=== PATIENT | male | born 1970 ===

== ENCOUNTER 2016-04-07 19:25 | Emergency (ER) | payer OTHER ==
[2016-04-07 20:25] VITALS: BP 114/71
--- NOTE | 2016-04-07 20:49 | UC ---
UC General HPI - HPI Summary HPI Summary: 45 yo male with a 3-4 day hx of fatigue and malaise He is an outdoorsman and a week ago removed a tick states it was not engorged and was attached for a max of 6 hours no celestin no f/c - History of Current Complaint Chief Complaint: UCGeneralIllness Stated Complaint: TICK BITE,FATIGUE,NAUSEA Time Seen by Provider: 04/07/16 20:28 Hx Obtained From: Patient Onset/Duration: Gradual Onset, Lasting Days Onset Severity: Mild Current Severity: Mild Pain Intensity: 0 Associated Signs & Symptoms: Positive: Other - fatigue/mailaise - Allergy/Home Medications Allergies/Adverse Reactions: Allergies Allergy/AdvReac Type Severity Reaction Status Date / Time Penicillins Allergy ITCHY HIVES Verified 04/07/16 20:26 SEASONAL HAYFEVER Allergy ITCHY Uncoded 04/07/16 20:26 EYES, SCRATCHY THROAT PMH/Surg Hx/FS Hx/Imm Hx Previously Healthy: Yes Endocrine History Of: Reports: Thyroid Disease - HYPOTHYROIDISM Psychological History Of: Reports: Anxiety - CONTROL WITH MED, Depression - CONTROL WITH MEDS - Surgical History Surgical History: Yes Surgery Procedure, Year, and Place: ENDOSCOPY, [facility]. COLONOSCOPY, [facility]. 08/2014 RIGHT WRIST CARPAL TUNNEL RELEASE, [facility] - Family History Known Family History: Positive: Hypertension - Social History Alcohol Use: None Substance Use Type: None Substance Use Comment - Amount & Last Used: OCCASIONAL LAST TIME WEEK OF July Smoking Status (MU): Former Smoker Type: Cigarettes Amount Used/How Often: 1 PPD Length of Time of Smoking/Using Tobacco: 15 YEARS OFF AND ON Have You Smoked in the Last Year: No When Did the Patient Quit Smoking/Using Tobacco: 2013 Review of Systems Constitutional: Fatigue Skin: Negative Eyes: Negative ENT: Negative Respiratory: Negative Cardiovascular: Negative Gastrointestinal: Negative Genitourinary: Negative Motor: Negative Neurovascular: Negative Musculoskeletal: Myalgia Neurological: Negative Psychological: Negative All Other Systems Reviewed And Are Negative: Yes Physical Exam Triage Information Reviewed: Yes Appearance: Well-Appearing, No Pain Distress, Well-Nourished Vital Signs: Initial Vital Signs Temp 98.4 F 04/07/16 20:16 Pulse 70 04/07/16 20:16 Resp 18 04/07/16 20:16 BP 114/71 04/07/16 20:16 Pulse Ox 99 04/07/16 20:16 Vital Signs Reviewed: Yes Eyes: Positive: Conjunctiva Clear ENT: Positive: Normal ENT inspection, Hearing grossly normal, Pharynx normal, TMs normal. Negative: Nasal congestion, Nasal drainage, Trismus, Muffled/ hoarse voice Neck: Positive: Nontender, No Lymphadenopathy Respiratory: Positive: Lungs clear, Normal breath sounds, No respiratory distress, No accessory muscle use Cardiovascular: Positive: RRR, No Murmur, Pulses Normal Musculoskeletal: Positive: Strength Intact, ROM Intact, No Edema Neurological: Positive: Alert Psychological Exam: Normal Skin Exam: Normal Course/Dx - Differential Dx - Multi-Symptom Provider Diagnoses: Fatigue/mailase of uncertain cause Discharge - Discharge Plan Condition: Stable Disposition: HOME Patient Education Materials: Fatigue (ED) Referrals: Franck Ahuja MD [Primary Care Provider] - 2 Weeks () Additional Instructions: blood work pending recheck for new or worsening symptoms see your MD in 1-2 weeks if not better
[2016-04-08 10:21] LABS: Hematocrit 44 % (42-52); Hemoglobin 14.8 g/dl (14.0-18.0); Mean Corpuscular HGB Conc 34 g/dl (31-36); Mean Corpuscular Hemoglobin 30 pg (27-31); Mean Corpuscular Volume 89 fL (80-94); Mean Platelet Volume 10 um3 (7.4-10.4); Red Blood Count 4.89 10^6/ul (4.0-5.4); Red Cell Distribution Width 13 % (10.5-15); White Blood Count 8.2 10^3/ul (3.5-10.8)
== END 2016-04-07 20:57 | disposition home or self-care (01) ==
LOC: UCEAST 19:25
DX: R53.83 Other fatigue (principal); Z88.0 Allergy status to penicillin; Z87.891 Personal history of nicotine dependence
CPT/HCPCS: 36415; 85025; 86618; 99211; G0463